=== PATIENT | female | born 1940 | race Caucasian/White ===

== ENCOUNTER 2024-03-12 20:15 | Emergency (ER) | payer MEDICARE ==
[~2024-03-12] VITALS: Ht 160 cm; Wt 73.0 kg
[~2024-03-12 20:15] MED LIST: DORZOLAMIDE-TIM10 ML OD; LATANOPROST2.5 ML OD; LEVOTHYROXINE88 MCG PO; LISINOPRIL2.5 MG PO; PREDNISOLONE ACE5 ML OS; WARFARIN SODIUM5 MG PO
[2024-03-12 20:35] LABS: BASOPHILS 0.9 % (0-2); EOSINOPHILS 1.9 % (0-6); HEMATOCRIT 38.4 % (35.0-50.0); HEMOGLOBIN 12.9 g/dL (12.0-18.0); LYMPHOCYTES 27.4 % (24-44); MCH 33.4 (27-36); MCHC 33.7 g/dl (30-36); MCV 99.3 fl (81-99); NEUTROPHILS 61.8 % (39-80); PLATELET COUNT 256 K/uL (140-440); RBC 3.87 M/ul (4.3-5.7); RDW 13.6 (10.5-15.0)
[2024-03-12 20:47] LABS: ALBUMIN 3.7 g/dL (3.4-5.0); ALBUMIN/GLOBULIN RATIO 1.06 (1.1-2.4); ALCOHOL, MEDICAL <3 ng/dL (<3); ALKALINE PHOSPHATASE 89 U/L (46-116); ALT (SGPT) 40 U/L (14-59); ANION GAP 9.4 (7-21); AST (SGOT) 25 U/L (15-37); BILIRUBIN, TOTAL 0.4 ng/dL (0.2-1.0); BUN/CREATININE RATIO 18.81 (6.0-28.6); CALCIUM 9.2 mg/dL (8.5-10.1); CARBON DIOXIDE 32 mmol/L (21-32); CHLORIDE 105 mmol/L (98-107); CREATININE, SERUM 1.01 mg/dL (0.55-1.02); GLOMERULAR FILTRATION RATE,EST 56 mL/min (>60); POTASSIUM 4.4 mmol/L (3.5-5.1); PROTEIN, TOTAL 7.2 g/dL (6.4-8.2); UREA NITROGEN 19 mg/dL (7-18)
[2024-03-12 21:12] LABS: ABO A; RH POSITIVE
[2024-03-12 21:13] LABS: ANTIBODY SCREEN NEGATIVE
[2024-03-12 21:35] LABS: INFLUENZA B NAA NEGATIVE (NEGATIVE); RESPIRATORY SYNCYTIAL VIR NAA NEGATIVE (NEGATIVE)
[2024-03-12 22:10] LABS: BILIRUBIN, URINE NEGATIVE (negative); BLOOD/HGB, URINE NEGATIVE (Negative); KETONE, URINE NEGATIVE (Negative); LEUK ESTERASE, URINE SMALL (negative); NITRITE, URINE NEGATIVE (negative); PH, URINE 5.5 (5-7)
[2024-03-12 22:18] LABS: BACTERIA, URINE NONE SEEN /hpf (negative); CASTS, URINE NONE SEEN \\lpf; COLLECTION TYPE, URINE CLEAN CATCH; CRYSTALS, URINE NONE SEEN (0-1+); EPITHELIAL CELLS, URINE SQUAMOUS 1+ /lpf (0-1+); RED BLOOD CELLS, URINE 0-1 /hpf (0-5); REFLEX CULTURE, URINE Yes (No)
[2024-03-12 22:20] VITALS: BP 154/70
[2024-03-12 22:25] LABS: AMPHETAMINES, URINE NEGATIVE (NEGATIVE); BARBITURATES, URINE NEGATIVE (NEGATIVE); BENZODIAZEPINE, URINE NEGATIVE (NEGATIVE); BUPRENORPHINE, URINE NEGATIVE (NEGATIVE); CANNABINOID, URINE NEGATIVE (NEGATIVE); COCAINE, URINE NEGATIVE (NEGATIVE); ECSTASY, URINE NEGATIVE (NEGATIVE); FENTANYL, URINE NEGATIVE (NEGATIVE); METHADONE, URINE NEGATIVE (NEGATIVE); OPIATES, URINE NEGATIVE (NEGATIVE); OXYCODONE, URINE NEGATIVE (NEGATIVE); PHENCYCLIDINE, URINE NEGATIVE (NEGATIVE)
--- NOTE | 2024-03-13 20:36 | EKG ---
[facility] [address] [place], [place] [address] Signed Possible Atrial flutter with 5:1 AV conduction but can consider artifact Abnormal ECG No previous ECGs available Confirmed by Ml Schuler DO ([id number]) on 03/13/2024 8:36:12 PM Electronically Signed By: ML SCHULER DO 03/13/242035 PATIENT NAME: MARIALUISA DONG Electrocardiogram DATE OF : 44 PHYSICIAN: ML SCHULER DO REPORT #: [id number] REPORT IS CONFIDENTIAL AND NOT TO BE RELEASED WITHOUT AUTHORIZATION
== END 2024-03-12 22:20 | disposition home or self-care (01) ==
LOC: ED 20:15
PROVIDERS: Internal Medicine
DX: R55 Syncope and collapse (principal); Z79.01 Long term (current) use of anticoagulants; Z88.5 Allergy status to narcotic agent; Z79.890 Hormone replacement therapy; Z79.899 Other long term (current) drug therapy; Z11.52 Encounter for screening for COVID-19; W18.30XA Fall on same level, unspecified, initial encounter
CPT/HCPCS: 36415; 70450; 71045; 80053; 80307; 81001; 83690; 85025; 86850; 86900; 86901; 87088; 87502; 99284-25; G0480; U0002